=== PATIENT | female | born 1990 | race Caucasian/White ===

== ENCOUNTER 2017-12-19 16:10 | Emergency (ER) | payer SELFPAY ==
--- NOTE | 2017-12-19 16:43 | EDM.PDOC ---
ED HPI GENERAL MEDICAL PROBLEM - General Chief Complaint: Lower Extremity Injury/Pain Stated Complaint: RIGHT KNEE/HIP PAIN Time Seen by Provider: 12/19/17 16:35 Source of Information: Reports: Patient History Limitations: Reports: No Limitations - History of Present Illness INITIAL COMMENTS - FREE TEXT/NARRATIVE: Deandra is a 27yo female presents ambulatory to ED with complaints of back and right leg pain for the past few days. She is from [place], traveling through back home from vacation. States she has chronic LBP, takes multiple medications including narcotics for this. States her PCP advised her not to go on this trip due to her back pain, she proceeded with the trip. She has been sitting, then was hiking in [facility] and slipped, falling to the ground. Since that time her low back, right buttock and leg have been bothering her to the point that she can barely sit or stand. She states she does not have her PRN medication with her which includes oxcodone, valium and a few others. Denies bowel or bladder dysfunction, no numbness or tingling to the leg but does feel occasional shooting pains into her buttock and thigh. Onset: Sudden Duration: Day(s): (3) Location: Reports: Back, Lower Extremity, Right Right Hip Pain Score (Numeric/FACES): 8 Right Knee Pain Score (Numeric/FACES): 8 - Related Data Allergies Allergy/AdvReac Type Severity Reaction Status Date / Time No Known Allergies Allergy Verified 12/19/17 16:30 Home Meds: Home Meds ALPRAZolam [Xanax] 0.25 mg PO DAILY PRN 12/19/17 [History] Acetaminophen with Codeine [Tylenol with Codeine #4 Tablet] 1 tab PO TID PRN 01/01 [History] Diazepam [Valium] 10 mg PO DAILY PRN 12/19/17 [History] Ibuprofen 800 mg PO Q8HR PRN 12/19/17 [History] Methocarbamol [Robaxin] 750 mg PO DAILY PRN 12/19/17 [History] Pregabalin [Lyrica] 200 mg PO TID PRN 12/19/17 [History] cloNIDine HCl [Clonidine HCl ER] 0.1 mg PO TID PRN 12/19/17 [History] oxyCODONE 1 - 2 tab PO DAILY PRN 12/19/17 [History] Past Medical History Cardiovascular History: Reports: Hypertension Musculoskeletal History: Reports: Arthritis, Back Pain, Chronic Social & Family History - Family History Family Medical History: Noncontributory Review of Systems - Review of Systems Review Of Systems: See Below Constitutional: Reports: No Symptoms Eyes: Reports: No Symptoms Ears: Reports: No Symptoms Nose: Reports: No Symptoms Mouth/Throat: Reports: No Symptoms Respiratory: Reports: No Symptoms Cardiovascular: Reports: No Symptoms GI/Abdominal: Reports: No Symptoms Genitourinary: Reports: No Symptoms Musculoskeletal: Reports: Back Pain Neurological: Reports: No Symptoms, Difficulty Walking. Denies: Numbness, Paresthesia, Tingling ED EXAM, GENERAL - Physical Exam Exam: See Below Exam Limited By: No Limitations General Appearance: Alert, WD/WN, Other (dramatic in discussion and in actions when moving about the cart) Eye Exam: Bilateral Eye: EOMI, PERRL Ears: Normal External Exam, Hearing Grossly Normal Nose: Normal Inspection Throat/Mouth: Normal Inspection, Normal Lips, Normal Teeth, No Airway Compromise Head: Atraumatic, Normocephalic Neck: Normal Inspection Respiratory/Chest: No Respiratory Distress, Lungs Clear, Normal Breath Sounds Cardiovascular: Normal Peripheral Pulses, Regular Rate, Rhythm, No Edema, No Murmur Peripheral Pulses: 2+: Posterior Tibial (L), Posterior Tibial (R), Dorsalis Pedis (L), Dorsalis Pedis (R) GI/Abdominal: Normal Bowel Sounds, Soft (Female) Exam: Deferred Rectal (Female) Exam: Deferred Back Exam: Normal Inspection Extremities: Normal Inspection, No Pedal Edema, Normal Capillary Refill, Other ( I can move her knee, flex to 90 degrees with ease but patient writhes in pain. I can internally and externally rotate hip/leg while it is straight on the cart and no c/o hip or back pain, states it hurts her knee. Palpation of the knee is without abnormality. Anywhere that I place my hand on her right leg causes patient to writh in pain, out of proportion to what would be expected. Valgus and varus stresses of the knee are without laxity, no fullness to popliteal space noted. No swelling about the knee or leg, no ecchymosis.) Neurological: Alert, Oriented Psychiatric: Anxious, Other Skin Exam: Warm, Dry, Intact Course - Vital Signs Last Recorded V/S: Last Vital Signs Temp 98.9 F 12/19/17 16:22 Pulse 104 H 12/19/17 16:22 Resp 18 12/19/17 16:22 BP 136/94 H 12/19/17 16:22 Pulse Ox 99 12/19/17 16:22 - Orders/Labs/Meds Orders: Active Orders 24 hr Category Date Time Status Hip Min 1V w Pelvis Rt [CR] Stat Exams 12/19/17 16:39 Taken Lumbar Spine 2 or 3V [CR] Stat Exams 12/19/17 16:39 Taken Meds: Medications Discontinued Medications Generic Name Dose Route Start Last Admin Trade Name Freq PRN Reason Stop Dose Admin Ketorolac Tromethamine 30 mg 12/19/17 17:46 Toradol IM 12/19/17 17:47 ONETIME ONE - Radiology Interpretation Free Text/Narrative:: xrays of lumbar spine and right hip are unremarkable for acute findings or injury/fracture--reviewed with patient. - Re-Assessments/Exams Free Text/Narrative Re-Assessment/Exam: 12/19/17 17:54 Reviewed normal xrays with patient; toradol IM given. Reviewed with patient that based on current medications I am not willing to prescribe her any further narcotics or pain medications. Recommend nonmedicinal therapies such as heat/ice, accupuncture. Continue with motrin and can also try tylenol. Follow up with PCP when she returns to [place]. Departure - Departure Time of Disposition: 17:56 Disposition: Home, Self-Care 01 Condition: Good Clinical Impression: Acute exacerbation of chronic low back pain - Discharge Information Instructions: Muscle Strain, [id number], Chronic Pain, Adult, Chronic Back Pain Referrals: PCP,Not In Area [Primary Care Provider] - Forms: ED Department Discharge Additional Instructions: Use prescribed medications from primary care provider as needed/as directed Heat or ice to low back 3-4 times daily Recommend nonmedicinal therapies such as heat/ice therapy, accupuncture, yoga, gentle exercise, recommend weight loss for chronic back pain. Due to current medications prescribed by current PCP, I will not prescribe any further pain medications. Follow up with your primary care provider when you return home to [place]. - My Orders Last 24 Hours: My Active Orders 12/19/17 16:39 Hip Min 1V w Pelvis Rt [CR] Stat Lumbar Spine 2 or 3V [CR] Stat - Assessment/Plan Last 24 Hours: My Active Orders 12/19/17 16:39 Hip Min 1V w Pelvis Rt [CR] Stat Lumbar Spine 2 or 3V [CR] Stat
[2017-12-19] MEDS ORDERED: Ketorolac 30 MG/ML SDV IM ONE (17:46)
--- NOTE | 2017-12-20 07:55 | CR ---
Lumbar spine: AP, lateral views of lumbar spine were obtained as well as coned-down lateral view centered to the lumbosacral junction. Comparison: No prior lumbar spine imaging. Findings: Vertebral body heights and disc spaces are maintained. Slight scoliosis is noted. Pedicles as well as transverse and spinous processes are intact. No subluxation or fracture is seen. Small calcification is noted within the lower left kidney suspicious for small nonobstructing stone. Sacroiliac joints appear within normal limits. Impression: 1. Minimal scoliosis. 2. Probable small nonobstructing calculus within the lower left kidney. 3. Three-view lumbar spine study is otherwise unremarkable. Diagnostic code #2
--- NOTE | 2017-12-20 07:55 | CR ---
Pelvis and right hip: AP view of the pelvis was obtained as well as frog-leg lateral view of the right hip. Comparison: No previous study. Joint spaces within both hips are maintained. Sacroiliac joints appear within normal limits. No fracture or other bony abnormality is seen. Impression: 1. No abnormality is appreciated on AP pelvis or on frog-leg lateral right hip exam. Diagnostic code #1
== END 2017-12-19 18:13 | disposition home or self-care (01) ==
LOC: JD.ED 16:10
DX: M54.5 Low back pain (principal); G89.29 Other chronic pain; Z79.899 Other long term (current) drug therapy
CPT/HCPCS: 72100; 73501; 96372; 99283; J1885